=== PATIENT | female | born 1955 | race Caucasian/White ===

== ENCOUNTER 2020-10-14 07:59 | Outpatient (REF) | payer MEDICARE, OTHER, SELFPAY ==
--- NOTE | ~2020-10-14 | MM_ITS ---
EXAMINATION: MM SCREENING DIGITAL BREAST TOMOSYNTHESIS, BILATERAL CLINICAL INFORMATION: Screening. Asymptomatic. The lifetime risk of breast cancer based on the Tyrer-Cuzick Model is 4%. COMPARISON: Outside mammography: 05/28/2018, 04/09/2016 ([facility]). TECHNIQUE: Digital breast tomosynthesis is performed in both the craniocaudal and mediolateral oblique views along with computer-aided detection (CAD). Synthesized 2D images are generated from the tomosynthesis. FINDINGS: There are scattered areas of fibroglandular density (ACR BI-RADS breast composition Category b). Parenchymal pattern is similar to previous outside exams. There is no developing density or interval mass or architectural abnormality. There are no significant masses, abnormal calcifications, or other abnormalities. The axilla and skin contours are unremarkable. MM/MM tomosynthesis screening BI IMPRESSION: No significant changes from prior outside exams. ASSESSMENT: BI-RADS 1: Negative RECOMMENDATION: Routine annual mammography screening. This patient's information was entered into a reminder system with a target due date for their next mammogram.
--- NOTE | ~2020-10-14 | MM_ITS ---
EXAMINATION: BONE DENSITOMETRY CLINICAL INDICATION: Osteoporosis. COMPARISON: This is the patient's baseline examination. TECHNIQUE: Using a [employer] DXA System (software version: 13.1) manufactured by [employer], dual-energy x-ray absorptiometry was performed of the lumbar spine and left hip. The images are of good technical quality. Summary results are attached. FINDINGS: AP SPINE L1-L4: BMD 0.901 g/cm2, Z-score -0.6, T-score -2.3, osteopenia. LEFT FEMUR, NECK: BMD 0.716 g/cm2, Z-score -0.8, T-score -2.3, osteopenia. LEFT FEMUR, TOTAL: BMD 0.808 g/cm2, Z-score -0.3, T-score -1.6, osteopenia. IDENTIFIED RISK FACTORS: Menopause, low calcium intake. HISTORY OF FRACTURE: None listed. MEDICATIONS: None listed. MM/XR DEXA axial skeleton IMPRESSION: 1. DIAGNOSIS: Osteopenia based on the lowest T-score value of -2.3 in the lumbar spine and femur neck applying World Health Organization criteria. 2. 10-YEAR FRACTURE RISK PREDICTION, FRAX: Major osteoporotic fracture (clinical spine, forearm, hip or shoulder) 12.5%. Hip fracture 2.4%. 3. Treatment Recommendations: NOF guidelines recommend consideration for treatment in postmenopausal women and men age 50 and older presenting with the following: -A hip or vertebral (clinical or morphometric) fracture. -T-score less than or equal to -2.5 at the femoral neck or spine after appropriate evaluation to exclude secondary causes. -Low bone mass at the hip or spine and a 10-year fracture probability by FRAX of greater than or equal to 3% for hip fracture or greater than or equal to 20% for major osteoporotic fracture based on the [place] adapted WHO algorithm. 4. Other Recommendations: All treatment decisions require clinical judgment and consideration of individual patient factors, including patient preferences, comorbidities, previous drug use, risk factors not captured in the FRAX model (e.g. frailty, falls, vitamin D deficiency, increased bone turnover, interval significant decline in bone density) and possible under or overestimation of fracture risk by FRAX. Additional medical evaluation for secondary cause of low bone mineral density may be appropriate. FUTURE SCAN RECOMMENDATION: People with diagnosed cases of osteoporosis or at high risk for fracture should have regular bone mineral density tests. For patients eligible for Medicare, routine testing is allowed once every 2 years. The testing frequency can be increased to one year for patients who have rapidly progressing disease, those who are receiving or discontinuing medical therapy to restore bone mass, or have additional risk factors.
== END 2020-10-14 08:00 | disposition home or self-care (01) ==
LOC: HO.MAMMO 07:59
PROVIDERS: PCP Internal Medicine; Visit Provider Internal Medicine
DX: Z12.31 Encounter for screening mammogram for malignant neoplasm of breast (principal); M81.0 Age-related osteoporosis without current pathological fracture; Z78.0 Asymptomatic menopausal state
CPT/HCPCS: 77063; 77067; 77080

== ENCOUNTER 2022-07-24 11:22 | Outpatient (REF) | payer MEDICARE, OTHER, SELFPAY ==
--- NOTE | ~2022-07-24 | MM_ITS ---
EXAMINATION: MM SCREENING DIGITAL BREAST TOMOSYNTHESIS, BILATERAL CLINICAL INFORMATION: Screening. Asymptomatic. The lifetime risk of breast cancer based on the Tyrer-Cuzick Model is 4%. COMPARISON: Mammography: 10/14/2020; outside mammography 05/28/2018, 04/09/2016 ([facility]). TECHNIQUE: Digital breast tomosynthesis is performed in both the craniocaudal and mediolateral oblique views along with computer-aided detection (CAD). Synthesized 2D images are generated from the tomosynthesis. FINDINGS: There are scattered areas of fibroglandular density (ACR BI-RADS breast composition Category b). There are no significant masses, abnormal calcifications, or other abnormalities. No architectural abnormality or developing density or significant change from prior studies. The axilla and skin contours are unremarkable. MM/MM tomosynthesis screening BI IMPRESSION: No mammographic evidence of malignancy. ASSESSMENT: BI-RADS 1: Negative RECOMMENDATION: Routine annual mammography screening. This patient's information was entered into a reminder system with a target due date for their next mammogram.
== END 2022-07-24 11:23 | disposition home or self-care (01) ==
LOC: HO.MAMMO 11:22
PROVIDERS: Visit Provider Internal Medicine
DX: Z12.31 Encounter for screening mammogram for malignant neoplasm of breast (principal)
CPT/HCPCS: 77063; 77067

== ENCOUNTER 2022-08-14 10:05 | Outpatient (REF) | payer MEDICARE, OTHER, SELFPAY ==
[2022-08-14 10:28] LABS: MANUAL DIFF FLAG NO
[2022-08-14 10:39] LABS: Basophils Percent Auto 0.5 % (0-2); Eosinophils Percent Auto 0.5 % (0-4); Hematocrit 44.5 % (37.0-47.0); Hemoglobin 15.3 g/dl (12.0-16.0); Imm Gran Abs Auto 0.01 X10*3/uL (0.00-0.03); Imm Gran Pct Auto 0.2 % (0.0-0.4); Lymphocytes Absolute Auto 2.7 X10*3/uL (1.2-4.9); Lymphocytes Percent Auto 46.3 % (20-40); Mean Corpuscular HGB Conc 34.4 g/dl (31.0-35.0); Mean Corpuscular Hemoglobin 32.3 pg (27.0-33.0); Mean Corpuscular Volume 94.1 fL (80.0-98.0); Mean Platelet Volume 9.3 fL (9.4-12.3); Monocytes Absolute Auto 0.4 X10*3/uL (0.1-1.2); Monocytes Percent Auto 7.5 % (2-11); Neutrophils Absolute Auto 2.6 x10*3/uL (2.0-8.3); Platelet Count 206 X10*3/uL (160-400); Red Blood Count 4.73 X10*6/uL (4.20-5.50); White Blood Count 5.9 X10*3/uL (4.8-10.8)
[2022-08-14 11:28] LABS: Alanine Aminotransferase 28 U/L (0-31); Albumin Level 4.6 g/dL (3.5-5.0); Alkaline Phosphatase 96 U/L (39-117); Anion Gap 14 (12-20); Aspartate Amino Transferase 24 U/L (5-31); Bilirubin Total 0.8 mg/dL (0.0-1.0); Blood Urea Nitrogen 16 mg/dL (9-16); Calcium 9.5 mg/dL (8.4-10.2); Carbon Dioxide 23 mmol/L (22-29); Chloride 107 mmol/L (96-108); Cholesterol 220 mg/dL; Estimated Glomerular Filt Rate > 60; Glucose Random 96 mg/dL (60-115); HDL Cholesterol 64 mg/dL; LDL Cholesterol Calculated 142 mg/dl; Potassium 4.3 mmol/L (3.3-5.1); Sodium 140 mmol/L (135-145); Total Protein 7.4 g/dL (6.5-8.0); Triglycerides 73 mg/dL
[2022-08-14 12:00] LABS: Folate 10.6 ng/mL (> or = 4.0); Free T4 (Free Thyroxine) 1.46 ng/dL (0.71-1.85); Thyroid Stimulating Hormone 0.01 uIU/mL (0.32-4.0); Vitamin B12 424 pg/mL (200-900)
== END 2022-08-14 10:06 | disposition home or self-care (01) ==
LOC: HO.LAB 10:05
PROVIDERS: PCP Internal Medicine; Visit Provider Internal Medicine
DX: E03.9 Hypothyroidism, unspecified (principal); E78.00 Pure hypercholesterolemia, unspecified; M81.0 Age-related osteoporosis without current pathological fracture
CPT/HCPCS: 36415; 80053; 80061; 82306; 82607; 82746; 84439; 84443; 85025

== ENCOUNTER 2022-09-14 08:37 | Outpatient (REF) | payer MEDICARE, OTHER, SELFPAY ==
[2022-09-14 12:18] LABS: Free T4 (Free Thyroxine) 1.06 ng/dL (0.71-1.85); Thyroid Stimulating Hormone 0.09 uIU/mL (0.32-4.0)
== END 2022-09-14 08:38 | disposition home or self-care (01) ==
LOC: HO.WFDLDS 08:37
PROVIDERS: Visit Provider Internal Medicine
DX: E03.9 Hypothyroidism, unspecified (principal)
CPT/HCPCS: 36415; 84439; 84443

== ENCOUNTER 2022-10-30 09:28 | Outpatient (REF) | payer MEDICARE, OTHER, SELFPAY ==
[2022-10-30 11:50] LABS: Free T4 (Free Thyroxine) 1.02 ng/dL (0.71-1.85); Thyroid Stimulating Hormone 0.93 uIU/mL (0.32-4.0)
== END 2022-10-30 09:29 | disposition home or self-care (01) ==
LOC: HO.LAB 09:28
PROVIDERS: PCP Internal Medicine; Visit Provider Internal Medicine
DX: E03.9 Hypothyroidism, unspecified (principal)
CPT/HCPCS: 36415; 84439; 84443

== ENCOUNTER → 2023-07-03 10:30 | Outpatient (AMB) | payer MEDICARE, OTHER, SELFPAY ==
[2023-07-03 10:32] VITALS: BP 118/68; PULSE 62; O2SAT 99; BMI 25.8
--- NOTE | 2023-07-03 10:32 | AM.OFFWIN_ITS ---
Intake Vital Signs 07/03/23 10:32 Height 5 ft 1 in Weight 136 lb 8 oz BMI 25.8 BP 118/68 Blood Pressure Location Lt brachial Position Sitting Pulse 62 Pulse Source Pulse Oximeter Pulse Oximetry (%) 99 Oxygen Delivery Method Room Air Intake Visit Reasons: tick bite Intake Note: Patient is here with a tick bite on right side of chest for 2 days. Patient Tobacco Use Status: Never used Tobacco Allergies latex Allergy (Mild, Verified 07/03/23 10:51) breathing issues pineapple Allergy (Unknown, Verified 07/03/23 10:51) Unknown sulfacetamide [From Sulfacet-R] Allergy (Unknown, Verified 07/03/23 10:51) Unknown sulfur [From Sulfacet-R] Allergy (Unknown, Verified 07/03/23 10:51) Unknown high dose flu shot Adverse Reaction (Severe, Uncoded 07/03/23 10:51) swelling Medication List - Last Reconciled 07/03/23 by Reta Payne, QUOTATION CHECKER-BC artificial tears([id number]) drps ophthalmic (eye) cyclosporine 0.09% (Cequa) 1 drp ophthalmic (eye) Q12H doxycycline hyclate 200 mg (2 x 100 mg) PO DAILY levothyroxine 88 mcg PO DAILY vitamin A-vitamin C-vit E-min 1 tab PO DAILY Do you need a note to return to daycare/school/sports/work: No HPI HPI Comments History of Present Illness Details here today w tick bite occurred yesterday whilel gardening right chest did try to remove she is sure it was not there for more than 24 hours UTD on tdap PFSH Medical History (System 04/17/23 @ 14:41 by Stefani Roberts) Lactose intolerance Irritable bowel syndrome Hypertension Hypothyroid Surgical History (System 04/17/23 @ 14:41 by Stefani Roberts) History of cataract surgery No pertinent past surgical history Family History (System 04/17/23 @ 14:41 by Stefani Roberts) Mother No problems noted. Father No problems noted. Sister No problems noted. Sister No problems noted. Sister No problems noted. Sister No problems noted. Son No problems noted. Son No problems noted. Daughter No problems noted. Social History (System 04/17/23 @ 14:41 by Stefani Roberts) Housing: House Alcohol intake: current Alcohol intake frequency: 0-2 drinks per day Patient Tobacco Use Status: Never used Tobacco e-Cigarette/Vaping Use: Never Used Second Hand Smoke Exposure: No Current occupational status: retired Cognitive needs: No Hearing needs: No Vision needs: No Review of Systems Const All systems reviewed & are unremarkable except as noted in HPI and below Physical Exam Vital Signs: Last Vital Signs Pulse 62 07/03/23 10:32 BP 118/68 07/03/23 10:32 Pulse Ox 99 07/03/23 10:32 Oxygen Delivery Method Room Air 07/03/23 10:32 BMI result Body Mass Index 25.8 Const Other: Awake alert oriented no acute distress Speaking in full sentences Right chest wall is an area consistent with a partially retained tick. No extending erythema, edema or drainage. Assessment & Plan Assessment & Plan (1) Tick bite of chest wall: Code(s): S20.369A - Insect bite (nonvenomous) of unspecified front wall of thorax, initial encounter; W57.XXXA - Bitten or stung by nonvenomous insect and other nonvenomous arthropods, initial encounter Qualifiers: Encounter type: initial encounter Laterality: right Qualified Code(s): S20.361A - Insect bite (nonvenomous) of right front wall of thorax, initial encounter; W57.XXXA - Bitten or stung by nonvenomous insect and other nonvenomous arthropods, initial encounter Plan: Tick present for less than 24 hours. Patient is up-to-date on tetanus shot. Discussed the low risk of any Lyme disease. She would like to be treated with doxycycline 200 mg as someone in her family has Lyme disease and she is afraid of alyssa this illness. I have sent the son and advised on how to take as well as provided education regarding the retained tick. This area is quite small. Okay to apply warm moist compresses. The body will expel the tick contents. Plan This note is constructed using voice recognition software. While every effort has been made to ensure accuracy in wood heel flap inserter, still errors may have been included Sometimes, these errors may affect the content or meaning of the given sentence . Medications: New doxycycline hyclate 200 mg (2 x 100 mg) PO DAILY 2 tabs 0RF Coding Level of Care Code Est Pt Level 3 (19642) Diagnoses Tick bite of right side of chest wall, initial encounter S20.361A; W57.XXXA Encounter type: initial encounter Laterality: right
== END ==
PROVIDERS: PCP Internal Medicine; Visit Provider Nurse Practitioner Family
DX: S20.361A Insect bite (nonvenomous) of right front wall of thorax, initial encounter (principal); W57.XXXA Bitten or stung by nonvenomous insect and other nonvenomous arthropods, initial encounter
CPT/HCPCS: 99213

== ENCOUNTER 2023-08-21 09:10 | Outpatient (AMB) | payer MEDICARE, OTHER, SELFPAY ==
[2023-08-21 09:12] VITALS: BP 140/76; PULSE 70; O2SAT 98; BMI 25.3
--- NOTE | 2023-08-21 09:12 | MHC.PC.OV ---
Vital Signs 08/21/23 09:12 Height 5 ft 1 in Weight 134 lb BMI 25.3 BP 140/76 H Blood Pressure Location Lt brachial Position Sitting Pulse 70 Pulse Source Pulse Oximeter Pulse Oximetry (%) 98 Oxygen Delivery Method Room Air Intake Visit Reasons: Annual exam Allergies latex Allergy (Mild, Verified 08/21/23 09:12) breathing issues pineapple Allergy (Unknown, Verified 08/21/23 09:12) Unknown sulfacetamide [From Sulfacet-R] Allergy (Unknown, Verified 08/21/23 09:12) Unknown sulfur [From Sulfacet-R] Allergy (Unknown, Verified 08/21/23 09:12) Unknown high dose flu shot Adverse Reaction (Severe, Uncoded 08/21/23 09:12) swelling Medication List - Last Reconciled 08/21/23 by Jose Angel Grigsby MD artificial tears([id number]) drps ophthalmic (eye) cyclosporine 0.09% (Cequa) 1 drp ophthalmic (eye) Q12H levothyroxine 88 mcg PO DAILY vitamin A-vitamin C-vit E-min 1 tab PO DAILY [zocular spray ] Tobacco use date assessed: 08/21/23 Fall risk assessment: No Falls in past year Last assessed Fall Risk: 08/21/23 Dental Screening Dental Screen Date: 08/21/23 Did you have a dental visit in the last 12 months?: No Did you have a dental problem in the last 6 months where you did not have access to dental care?: No Was dental information given to patient?: Patient has dentist HPI Annual exam HPI Details 68-year-old female with a history of hypothyroidism osteoporosis and insomnia last seen in August 2022. Patient's colonoscopy was done 8 years ago. Mammogram is due and bone density is due. Review of the notes was seen by the Urgent Center in June for a tick bite treated with prophylaxis of doxycycline. Follows up with Dermatology. ER visit in December 2022 for suture on the right crease between the thumb and the pointer finger of the right hand. congested, PFSH Medical History (Updated 08/21/23 @ 09:41 by Jose Angel Grigsby MD) Lactose intolerance Irritable bowel syndrome Hypertension Hypothyroid Surgical History (System 04/17/23 @ 14:41 by Stefani Roberts) History of cataract surgery No pertinent past surgical history Family History (System 04/17/23 @ 14:41 by Stefani Roberts) Mother No problems noted. Father No problems noted. Sister No problems noted. Sister No problems noted. Sister No problems noted. Sister No problems noted. Son No problems noted. Son No problems noted. Daughter No problems noted. Social History (Updated 08/21/23 @ 09:30 by Jose Angel Grigsby MD) Housing: House Alcohol intake: current Alcohol intake frequency: 0-2 drinks per day Comment: stopped 08/2023 Patient Tobacco Use Status: Never used Tobacco Years Smoked: makes pot gummies e-Cigarette/Vaping Use: Never Used Second Hand Smoke Exposure: No Current occupational status: retired Cognitive needs: No Hearing needs: No Vision needs: No Questionnaire PHQ-9 Over the last 2 weeks, how often have you been bothered by any of the following problems? 1. Little interest or pleasure in doing things: not at all 2. Feeling down, depressed, or hopeless: not at all 3. Trouble falling or staying asleep, or sleeping too much: not at all 4. Feeling tired or having little energy: not at all 5. Poor appetite or overeating: not at all 6. Feeling bad about yourself - or that you are a failure or have let yourself or your family down: not at all 7. Trouble concentrating on things, such as reading the newspaper or watching television: not at all 8. Moving or speaking so slowly that other people could have noticed. Or the opposite - being so fidgety or restless that you have been moving around a lot more than usual: not at all 9. Thoughts that you would be better off or of hurting yourself in some way: not at all Total score: 0 Depression Screening Interpretation: Negative Depression Screening Done: Yes Source: Developed by Drs. Harjeet Zarate, Jennifer Jarvis, Rahat Stallings and colleagues, with an educational ghassan from [employer]. Thrive Questionnaire Date Thrive assessed: 08/21/23 I am a: Patient What is your living situation today?: I have a steady place to live Within the past 12 months, did the food you bought not last and you didn't have the money to get more?: Never true Within the past 12 months, did you worry whether your food would run out before you got money to buy more?: Never true Do you have trouble paying for medicines?: No Do you have trouble getting transportation to medical appointments?: No Do you have trouble paying your heating and electricity bill?: No Do you have trouble taking care of your child, family member or friend?: No Do you have trouble with day-to-day activities such as bathing, preparing meals, shopping, managing finances, etc.?: No Are you currently unemployed and looking for a job?: No Are you interested in more education?: No Currently or been in a relationship where the following occur: no concerns reported THRIVE Score: 0 AUDIT C Alcohol Use Questionnaire (AUDIT-C) 1. How often do you have a drink containing alcohol?: Never 3. How often do you have six or more drinks on one occasion?: Never Total Score: 0 ALESSANDRA-7 AMB Questionnaire ALESSANDRA-7 Date ALESSANDRA - 7 assessed: 08/21/23 Feeling nervous, anxious, or on edge: 0 = Not at all Not being able to stop or control worryin = Not at all Worrying too much about different things: 0 = Not at all Trouble relaxin = Not at all Being so restless that it is hard to sit still: 0 = Not at all Becoming easily annoyed or irritable: 0 = Not at all Feeling afraid as if something awful might happen: 0 = Not at all Total ALESSANDRA-7 score (0-4 normal; 5-9 mild; 10-14 moderate; 15-21 severe): 0 Source: Developed by Drs. Harjeet Zarate, Jennifer Jarvis, Rahat Stallings and colleagues, with an educational ghassan from [employer]. Review of Systems Const Denies poor appetite and Denies weakness Eyes Denies no additional complaints ENT Reports Normal hearing present, Denies dizziness, Denies nasal congestion, Denies tinnitus and Denies sore throat Card Denies chest pain, Denies syncope, Denies rapid heart rate and Denies dyspnea Resp Denies cough and Denies dyspnea GI Denies change in stool character, Reports constipation, Denies diarrhea, Denies nausea and Denies vomiting Denies urinary frequency, Denies difficulty voiding and Denies dysuria Neuro Reports Normal hearing present, Denies confusion, Denies dizziness, Denies syncope and Denies weakness Psych Denies confusion Physical exam (Primary Care) Vital Signs: Last Vital Signs Pulse 70 08/21/23 09:12 BP 140/76 H 08/21/23 09:12 Pulse Ox 98 08/21/23 09:12 Oxygen Delivery Method Room Air 08/21/23 09:12 BMI result Body Mass Index 25.3 Tobacco/Smoking Status: Tobacco use Status Tobacco use date assessed 08/21/23 08/21/23 09:20 Patient Tobacco Use Status Never used Tobacco 08/21/23 09:20 e-Cigarette/Vaping Use Never Used 08/21/23 09:20 PHQ-9: PHQ-9 Score PHQ-9: Total score 0 08/21/23 09:20 Depression Screening Interpretation: Negative Thrive Assessment: Date of Thrive Assessment Date Thrive assessed 08/21/23 08/21/23 09:20 Currently or been in a relationship where the following occur: no concerns reported Const General: No confusion Orientation/consciousness: No confusion HENMT Head: Yes normocephalic Ears: external ears normal and TM's normal bilaterally Face and sinus: Yes normal facial exam Mouth: moist mucous membranes Throat: Yes tonsils normal Eyes Conjunctivae: conjunctivae normal Pupils: Equal, round and reactive pupils present and Pupil accommodation reflex normal Direct Ophthalmoscopy: normal light reflex Neck Neck: No lymphadenopathy Thyroid: Thyroid normal Chest Chest palpation & inspection: normal inspection of the chest Resp Effort & Inspection: normal respiratory effort and no audible wheezes Auscultation: clear to auscultation bilaterally, no crackles, no wheezes and lung sounds not diminished Cardio Rate: regular rate Rhythm: regular rhythm Peripheral pulses: radial pulses present and dorsalis pedis present GI Other: guaiac negative Palpation (GI): no masses Auscultation: normal bowel sounds and normoactive bowel sounds Skin General skin exam: no rashes or lesions noted Rashes: no rashes Neuro General: No confusion Cranial nerves: Yes Equal, round and reactive pupils present and Yes Normal hearing present Cognition (Neuro): normal cognition Gait exam (Neuro): Normal gait present Motor exam (neuro): 5/5 motor strength present throughout Deep tendon reflexes (DTR's): Right brachioradialis reflex intensity grade: 2+, Left brachioradialis reflex intensity grade: 2+, Right patellar reflex intensity grade: 2+ and Left patellar reflex intensity grade: 2+ Extrem General: No edema Assessment and Plan Assessment & Plan (1) Annual physical exam: Code(s): Z00.00 - Encounter for general adult medical examination without abnormal findings (2) Breast cancer screening by mammogram: Code(s): Z12.31 - Encounter for screening mammogram for malignant neoplasm of breast Plan: Patient is reminded about the mammogram (3) Osteoporosis: Comment: October 2020 Code(s): M81.0 - Age-related osteoporosis without current pathological fracture Plan: Patient is due for bone density (4) Hypertension: Code(s): I10 - Essential (primary) hypertension (5) Hypothyroid: Code(s): E03.9 - Hypothyroidism, unspecified Qualifiers: Hypothyroidism type: acquired Qualified Code(s): E03.9 - Hypothyroidism, unspecified Plan: Continue with thyroid medication and blood work requested. (6) Hypercholesterolemia: Code(s): E78.00 - Pure hypercholesterolemia, unspecified Plan: Avoid fried foods, chicken skin, eggs, butter margarine, pastries and meat. Be it pork or beef they have a lot of cholesterol LDL goal of less than 130 and triglyceride of less than 150. Advised to get blood work done (7) Sinusitis: Code(s): J32.9 - Chronic sinusitis, unspecified Plan: antibiotic sent with asteprosamples Orders: Orders Complete Blood Count Auto Diff Today I10 - Essential (primary) hypertension Comprehensive Met. Panel Today I10 - Essential (primary) hypertension Free T4 (Free Thyroxine) Today I10 - Essential (primary) hypertension Vitamin B12 and Folate Today I10 - Essential (primary) hypertension Thyroid Stimulating Hormone Today I10 - Essential (primary) hypertension Lipid Panel Today E78.00 - Pure hypercholesterolemia, unspecified, I10 - Essential (primary) hypertension Vitamin D 25-OH Total Today I10 - Essential (primary) hypertension XR DEXA axial skeleton Today M81.0 - Age-related osteoporosis without current pathological fracture Medications: New levothyroxine 88 mcg PO DAILY 90 tabs 2RF E03.9 - Hypothyroidism, unspecified azelastine (Astepro Allergy) administer into each nostril 2 sprays intranasal DAILY 30 mL 0RF J32.9 - Chronic sinusitis, unspecified amoxicillin-pot clavulanate 875-125 mg 1 tab PO BID 20 tabs 0RF J32.9 - Chronic sinusitis, unspecified Discontinued levothyroxine Discontinued Reason: Doctor's Order 88 mcg PO DAILY 30 caps 3RF E03.9 - Hypothyroidism, unspecified Coding Level of Care Code Est Pt Prev Care >65y(71043) Diagnoses Annual physical exam Z00.00 Breast cancer screening by mammogram Z12.31 Osteoporosis M81.0 Hypertension I10 Acquired hypothyroidism E03.9 Hypothyroidism type: acquired Hypercholesterolemia E78.00 Sinusitis J32.9
== END 2023-08-21 09:57 | disposition home or self-care (01) ==
PROVIDERS: Visit Provider Internal Medicine
DX: Z00.00 Encounter for general adult medical examination without abnormal findings (principal); Z12.31 Encounter for screening mammogram for malignant neoplasm of breast; M81.0 Age-related osteoporosis without current pathological fracture; I10 Essential (primary) hypertension; E03.9 Hypothyroidism, unspecified; E78.00 Pure hypercholesterolemia, unspecified; J32.9 Chronic sinusitis, unspecified
CPT/HCPCS: 99397

== ENCOUNTER → 2023-08-21 09:30 | Outpatient (BNV) | payer MEDICARE, OTHER, SELFPAY | PROVIDERS: PCP Internal Medicine; Visit Provider Radiology Diagnostic Radiology | DX: Z12.31 Encounter for screening mammogram for malignant neoplasm of breast (principal) | CPT/HCPCS: 77063; 77067 ==

== ENCOUNTER 2023-08-21 10:00 | Outpatient (REF) | payer MEDICARE, OTHER, SELFPAY ==
--- NOTE | ~2023-08-21 | MM_ITS ---
EXAMINATION: BONE DENSITOMETRY CLINICAL INDICATION: Age-related osteoporosis without current pathological fracture. COMPARISON: Baseline BD dated 10/14/2020. TECHNIQUE: Using a [employer] DXA System (software version: 13.1) manufactured by [employer], dual-energy x-ray absorptiometry was performed of the lumbar spine and left hip. The images are of good technical quality. Summary results are attached. FINDINGS: LEFT FEMUR, NECK: Current: BMD 0.711 g/cm2, Z-score -0.6, T-score -2.4, osteopenia. Baseline: BMD 0.716 g/cm2. LEFT FEMUR, TOTAL: Current: BMD 0.828 g/cm2, Z-score 0.0, T-score -1.4, osteopenia, 2.5% increase from baseline (<5% change is not significant). Baseline: BMD 0.808 g/cm2. AP SPINE L1-L4: Current: BMD 0.872 g/cm2, Z-score -0.8, T-score -2.6, osteoporosis, 3.2% decrease from baseline (<5% change is not significant). Baseline: BMD 0.901 g/cm2. IDENTIFIED RISK FACTORS: Menopause, alcohol use. HISTORY OF FRACTURE: None listed. MEDICATIONS: None listed. MM/XR DEXA axial skeleton IMPRESSION: 1. DIAGNOSIS: Osteoporosis based on the lowest T-score value of -2.6 in the lumbar spine applying World Health Organization criteria. 2. 10-YEAR FRACTURE RISK PREDICTION, FRAX: According to the guidelines, FRAX calculation should only be performed on patients in the osteopenia bone density category. Therefore, FRAX was not performed on this patient. 3. Treatment Recommendations: NOF guidelines recommend consideration for treatment in postmenopausal women and men age 50 and older presenting with the following: -A hip or vertebral (clinical or morphometric) fracture. -T-score less than or equal to -2.5 at the femoral neck or spine after appropriate evaluation to exclude secondary causes. -Low bone mass at the hip or spine and a 10-year fracture probability by FRAX of greater than or equal to 3% for hip fracture or greater than or equal to 20% for major osteoporotic fracture based on the [place] adapted WHO algorithm. 4. Other Recommendations: All treatment decisions require clinical judgment and consideration of individual patient factors, including patient preferences, comorbidities, previous drug use, risk factors not captured in the FRAX model (e.g. frailty, falls, vitamin D deficiency, increased bone turnover, interval significant decline in bone density) and possible under or overestimation of fracture risk by FRAX. Additional medical evaluation for secondary cause of low bone mineral density may be appropriate. FUTURE SCAN RECOMMENDATION: People with diagnosed cases of osteoporosis or at high risk for fracture should have regular bone mineral density tests. For patients eligible for Medicare, routine testing is allowed once every 2 years. The testing frequency can be increased to one year for patients who have rapidly progressing disease, those who are receiving or discontinuing medical therapy to restore bone mass, or have additional risk factors.
[2023-08-21 10:50] LABS: MANUAL DIFF FLAG NO
[2023-08-21 11:03] LABS: Basophils Percent Auto 0.4 % (0-2); Eosinophils Percent Auto 0.4 % (0-4); Hematocrit 45.9 % (37.0-47.0); Hemoglobin 15.9 g/dl (12.0-16.0); Imm Gran Abs Auto 0.02 X10*3/uL (0.00-0.03); Imm Gran Pct Auto 0.3 % (0.0-0.4); Lymphocytes Absolute Auto 2.6 X10*3/uL (1.2-4.9); Lymphocytes Percent Auto 38.1 % (20-40); Mean Corpuscular HGB Conc 34.6 g/dl (31.0-35.0); Mean Corpuscular Hemoglobin 33.1 pg (27.0-33.0); Mean Corpuscular Volume 95.6 fL (80.0-98.0); Monocytes Absolute Auto 0.5 X10*3/uL (0.1-1.2); Monocytes Percent Auto 7.7 % (2-11); Neutrophils Absolute Auto 3.6 x10*3/uL (2.0-8.3); Neutrophils Percent Auto 53.1 % (45-73); Platelet Count 189 X10*3/uL (160-400); Red Cell Distribution Width 11.9 % (11.0-16.0); White Blood Count 6.8 X10*3/uL (4.8-10.8)
[2023-08-21 12:02] LABS: Alanine Aminotransferase 42 U/L (0-31); Albumin Level 4.8 g/dL (3.5-5.0); Alkaline Phosphatase 85 U/L (39-117); Anion Gap 12 (12-20); Aspartate Amino Transferase 31 U/L (5-31); Bilirubin Total 0.6 mg/dL (0.0-1.0); Blood Urea Nitrogen 12 mg/dL (9-16); Calcium 9.7 mg/dL (8.4-10.2); Carbon Dioxide 25 mmol/L (22-29); Chloride 105 mmol/L (96-108); Cholesterol 216 mg/dL (<200); Estimated Glomerular Filt Rate > 60; Glucose Random 103 mg/dL (60-115); HDL Cholesterol 65 mg/dL (>40); LDL Cholesterol Calculated 133 mg/dL (<100); Potassium 5.1 mmol/L (3.3-5.1); Sodium 137 mmol/L (135-145); Total Protein 8.1 g/dL (6.5-8.0); Triglycerides 93 mg/dL (<150)
[2023-08-21 12:09] LABS: Free T4 (Free Thyroxine) 1.07 ng/dL (0.71-1.85); Thyroid Stimulating Hormone 0.78 uIU/mL (0.32-4.0); Vitamin D 25-OH Total 28.5 ng/mL (>30)
[2023-08-21 12:18] LABS: Folate 8.8 ng/mL (> or = 4.0); Vitamin B12 525 pg/mL (200-900)
== END 2023-08-21 10:01 | disposition home or self-care (01) ==
LOC: HO.MAMMO 10:00
PROVIDERS: PCP Internal Medicine; Visit Provider Internal Medicine
DX: Z12.31 Encounter for screening mammogram for malignant neoplasm of breast (principal); Z13.820 Encounter for screening for osteoporosis; M81.0 Age-related osteoporosis without current pathological fracture; Z78.0 Asymptomatic menopausal state; E78.00 Pure hypercholesterolemia, unspecified; I10 Essential (primary) hypertension
CPT/HCPCS: 36415; 77063; 77067; 77080; 80053; 80061; 82306; 82607; 82746; 84439; 84443; 85025

== ENCOUNTER 2023-08-29 08:09 | Outpatient (REF) | payer MEDICARE, OTHER, SELFPAY ==
--- NOTE | ~2023-08-29 | US_ITS ---
EXAMINATION: US ABDOMEN COMPLETE CLINICAL INFORMATION: Other specified abnormal findings of blood chemistry. COMPARISON: None available. TECHNIQUE: Real-time imaging of the abdominal viscera. Limited visualization due to bowel gas. FINDINGS: PANCREAS: Limited visualization of pancreatic tail and head. Imaged portion of pancreatic body is unremarkable. ABDOMINAL AORTA: Limited visualization. INFERIOR VENA CAVA: Visualized portions are normal. LIVER: Increased hepatic parenchymal heterogeneity and echogenicity could be associated with hepatocellular disease/hepatic steatosis and substantially limits visualization. Correlation with liver function tests and clinical exam recommended to determine further management. 1.3 cm right hepatic cyst. GALLBLADDER: No gallstones. No gallbladder wall thickening. COMMON BILE DUCT: Normal in caliber measuring 0.3 cm in diameter. RIGHT KIDNEY: No hydronephrosis. 9 mm upper pole and 7 mm mid pole calculi. Limited visualization. 1.1 cm mid pole cysts with benign features. There is no indication for follow up imaging. The kidney measures 10.7 cm in maximum dimension. LEFT KIDNEY: Left mid pole 5 mm calculus. No hydronephrosis. Limited visualization. The kidney measures 10.9 cm in maximum dimension. SPLEEN: Normal. The spleen measures 7 cm in maximum dimension. FREE FLUID: None. US/US abdomen complete IMPRESSION: 1. Increased hepatic parenchymal heterogeneity and echogenicity could be associated with hepatocellular disease/hepatic steatosis and substantially limits visualization. Correlation with liver function tests and clinical exam recommended to determine further management. 2. Bilateral renal calculi. No hydronephrosis. 3. Right hepatic 1.3 cm cyst.
== END 2023-08-29 08:10 | disposition home or self-care (01) ==
LOC: HO.US 08:09
PROVIDERS: Visit Provider Internal Medicine
DX: R79.89 Other specified abnormal findings of blood chemistry (principal)
CPT/HCPCS: 76700

== ENCOUNTER 2023-09-03 13:27 | Outpatient (REF) | payer MEDICARE, OTHER, SELFPAY ==
[2023-09-03 15:34] LABS: Alanine Aminotransferase 22 U/L (0-31); Albumin Level 4.6 g/dL (3.5-5.0); Alkaline Phosphatase 77 U/L (39-117); Anion Gap 15 (12-20); Aspartate Amino Transferase 21 U/L (5-31); Bilirubin Total 0.4 mg/dL (0.0-1.0); Blood Urea Nitrogen 9 mg/dL (9-16); Calcium 10.2 mg/dL (8.4-10.2); Carbon Dioxide 26 mmol/L (22-29); Chloride 105 mmol/L (96-108); Estimated Glomerular Filt Rate > 60; Glucose Random 101 mg/dL (60-115); Potassium 4.5 mmol/L (3.3-5.1); Sodium 141 mmol/L (135-145); Total Protein 7.7 g/dL (6.5-8.0)
[2023-09-04 04:29] LABS: HBS Num1 0.33 mIU/mL (0-7.99); HBc Num1 0.09 S/CO (0.00-0.79); HBsAGNum1 0.22 S/CO (0.00-0.99); Hepatitis B Core Antibody Nonreactive (Nonreactive); Hepatitis B Surface Antigen Negative (Negative); ~HepC Num1 0.09 S/CO (0.00-0.79); ~Hepatitis B Surface Antibody NONREACTIVE (Nonreactive); ~Hepatitis C Antibody Nonreactive (Nonreactive)
== END 2023-09-03 13:28 | disposition home or self-care (01) ==
LOC: HO.LAB 13:27
PROVIDERS: PCP Internal Medicine; Visit Provider Internal Medicine
DX: R79.89 Other specified abnormal findings of blood chemistry (principal)
CPT/HCPCS: 36415; 80053; 86704; 86706; 86803; 87340

== ENCOUNTER 2024-01-03 09:59 | Outpatient (AMB) | payer MEDICARE, OTHER, SELFPAY ==
--- NOTE | 2024-01-03 10:01 | A.OFFPC_ITS ---
Vital Signs 01/03/24 10:03 Height 5 ft 1 in Weight 130 lb BMI 24.6 BP 120/62 Blood Pressure Location Lt brachial Position Sitting Pulse 77 Pulse Source Pulse Oximeter Pulse Oximetry (%) 98 Oxygen Delivery Method Room Air Intake Visit Reasons: 3mth f/u Intake Note: Patient is here to follow up on Hypercholesterolemia, HTN, Hypothyroid . 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 Accompanied by: Self / Same As Patient Allergies latex Allergy (Mild, Verified 01/03/24 10:02) breathing issues pineapple Allergy (Unknown, Verified 01/03/24 10:02) Unknown sulfacetamide [From Sulfacet-R] Allergy (Unknown, Verified 01/03/24 10:02) Unknown sulfur [From Sulfacet-R] Allergy (Unknown, Verified 01/03/24 10:02) Unknown high dose flu shot Adverse Reaction (Severe, Uncoded 01/03/24 10:02) swelling Tobacco use date assessed: 01/03/24 Fall risk assessment: No Falls in past year Last assessed Fall Risk: 01/03/24 Dental Screening Dental Screen Date: 08/21/23 HPI 3mth f/u HPI Details 68-year-old female with osteoporosis hyp ertension hypothyroid and hypercholesterolemia last seen for physical in 08/24/2023.. Review of the notes may had an ultrasound of the liver showing hepatic steatosis. Incidentally noted bilateral kidney stones right 9 mm and 7 mm. Left has midpole 5 mm stone. Also noted to have a right liver cyst 1.3 cm. Patient had a bone density done with the left femur having osteopenia and the spine heavy osteoporosis. [facility] Medical History (Updated 01/03/24 @ 10:20 by Jose Angel Grigsby MD) LFT elevation Lactose intolerance Irritable bowel syndrome Hypertension Hypothyroid Surgical History History of cataract surgery No pertinent past surgical history Family History Mother No problems noted. Father No problems noted. Sister No problems noted. Sister No problems noted. Sister No problems noted. Sister No problems noted. Son No problems noted. Son No problems noted. Daughter No problems noted. Social History Housing: House Alcohol intake: current Alcohol intake frequency: 0-2 drinks per day Comment: stopped 08/2023 Patient Tobacco Use Status: Never used Tobacco Years Smoked: makes pot gummies e-Cigarette/Vaping Use: Never Used Second Hand Smoke Exposure: No Current occupational status: retired Cognitive needs: No Hearing needs: No Vision needs: No Questionnaire Thrive Questionnaire Date Thrive assessed: 08/21/23 ALESSANDRA-7 AMB Questionnaire ALESSANDRA-7 Date ALESSANDRA - 7 assessed: 08/21/23 Source: Developed by Drs. Harjeet Zarate, Jennifer Jarvis, Rahat Stallings and colleagues, with an educational ghassan from [employer]. Physical exam (Primary Care) Vital Signs: Last Vital Signs Pulse 77 01/03/24 10:03 BP 120/62 01/03/24 10:03 Pulse Ox 98 01/03/24 10:03 Oxygen Delivery Method Room Air 01/03/24 10:03 BMI result Body Mass Index 24.6 Tobacco/Smoking Status: Tobacco use Status Tobacco use date assessed 01/03/24 01/03/24 10:07 Patient Tobacco Use Status Never used Tobacco 01/03/24 10:07 e-Cigarette/Vaping Use Never Used 01/03/24 10:07 Thrive Assessment: Date of Thrive Assessment Date Thrive assessed 08/21/23 01/03/24 10:07 Const General: alert; No acute distress Eyes Conjunctivae: conjunctivae normal Resp Auscultation: clear to auscultation bilaterally Cardio Rate: regular rate Rhythm: regular rhythm GI Inspection: Yes normal to inspection Extrem General: Yes normal to inspection and No edema Assessment and Plan Assessment & Plan (1) Bilateral renal stones: Comment: August 2023 Increased hepatic parenchymal heterogeneity and echogenicity could be associated with hepatocellular disease/hepatic steatosis and substantially limits visualization. Correlation with liver function tests and clinical exam recommended to determine further management. 2. Bilateral renal calculi. No hydronephrosis. 3. Right hepatic 1.3 cm cyst. Code(s): N20.0 - Calculus of kidney Plan: Keep well hydrated to prevent kidney stones and to prevent it from getting bigger. (2) Hepatic steatosis: Comment: August 2023 Increased hepatic parenchymal heterogeneity and echogenicity could be associated with hepatocellular disease/hepatic steatosis and substantially limits visualization. Correlation with liver function tests and clinical exam recommended to determine further management. 2. Bilateral renal calculi. No hydronephrosis. 3. Right hepatic 1.3 cm cyst. Code(s): K76.0 - Fatty (change of) liver, not elsewhere classified Plan: Low-fat diet and exercise (3) Impaired fasting blood sugar: Code(s): R73.01 - Impaired fasting glucose Plan: Decrease the amount of carbohydrate intake, pasta, bread, rice and potatoes are all sugar and that is aside from all the sweet stuff, remember that fruits are good but they are Sweet also. (4) Hypercholesterolemia: Code(s): E78.00 - Pure hypercholesterolemia, unspecified Plan: Avoid fried foods, chicken skin, eggs, butter margarine, pastries and meat. Be it pork or beef they have a lot of cholesterol LDL goal of less than 130 and triglyceride of less than 150. (5) Osteoporosis: Comment: October 2020, August 2023 Code(s): M81.0 - Age-related osteoporosis without current pathological fracture Plan: Discussed about calcium and vitamin-D and medication to help with the bone. (6) Hypertension: Code(s): I10 - Essential (primary) hypertension Plan: Continue with blood pressure medication. Decrease salt intake and exercise patient's blood pressure presently is normal (7) Hypothyroid: Code(s): E03.9 - Hypothyroidism, unspecified Qualifiers: Hypothyroidism type: acquired Qualified Code(s): E03.9 - Hypothyroidism, unspecified Plan: Continue with thyroid medication Coding Level of Care Code Est Pt Level 4 (52037) Diagnoses Bilateral renal stones N20.0 Hepatic steatosis K76.0 Impaired fasting blood sugar R73.01 Hypercholesterolemia E78.00 Osteoporosis M81.0 Hypertension I10 Acquired hypothyroidism E03.9 Hypothyroidism type: acquired
[2024-01-03 10:03] VITALS: BP 120/62; PULSE 77; O2SAT 98; BMI 24.6
== END 2024-01-03 10:42 | disposition home or self-care (01) ==
PROVIDERS: PCP Internal Medicine; Visit Provider Internal Medicine
DX: N20.0 Calculus of kidney (principal); K76.0 Fatty (change of) liver, not elsewhere classified; R73.01 Impaired fasting glucose; E78.00 Pure hypercholesterolemia, unspecified; M81.0 Age-related osteoporosis without current pathological fracture; I10 Essential (primary) hypertension; E03.9 Hypothyroidism, unspecified
CPT/HCPCS: 99214

== ENCOUNTER 2024-09-23 09:09 | Outpatient (AMB) | payer MEDICARE, OTHER, SELFPAY ==
[2024-09-23 09:13] VITALS: BP 130/62; PULSE 65; O2SAT 99; BMI 25.3
--- NOTE | 2024-09-23 09:13 | A.OFFPC_ITS ---
Vital Signs 09/23/24 09:13 Height 5 ft 1 in Weight 134 lb BMI 25.3 BP 130/62 Blood Pressure Location Lt brachial Position Sitting Pulse 65 Pulse Source Pulse Oximeter Pulse Oximetry (%) 99 Oxygen Delivery Method Room Air Intake Visit Reasons: annual exam Allergies latex Allergy (Mild, Verified 09/23/24 09:14) breathing issues pineapple Allergy (Unknown, Verified 09/23/24 09:14) Unknown sulfacetamide [From Sulfacet-R] Allergy (Unknown, Verified 09/23/24 09:14) Unknown sulfur [From Sulfacet-R] Allergy (Unknown, Verified 09/23/24 09:14) Unknown high dose flu shot Adverse Reaction (Severe, Uncoded 09/23/24 09:14) swelling Medication List - Last Reconciled 09/23/24 by Jose Angel Grigsby MD artificial tears([id number]) drps ophthalmic (eye) Bacillus coagulans-inulin 1 billion-250 cell-mg (Probiotic with Prebiotic) caps PO cyclosporine 0.09% (Cequa) 1 drp ophthalmic (eye) Q12H levothyroxine 88 mcg PO DAILY magnesium glycinate mg PO metronidazole 0.75% 1 appl topical BID multivitamin 1 tab PO DAILY vitamin A-vitamin C-vit E-min 1 tab PO DAILY [zocular spray ] Tobacco use date assessed: 09/23/24 Fall risk assessment: No Falls in past year Last assessed Fall Risk: 09/23/24 Dental Screening Dental Screen Date: 09/23/24 Did you have a dental visit in the last 12 months?: Yes Did you have a dental problem in the last 6 months where you did not have access to dental care?: No Was dental information given to patient?: Patient has dentist [facility] Medical History (Updated 01/03/24 @ 10:20 by Jose Angel Grigsby MD) LFT elevation Lactose intolerance Irritable bowel syndrome Hypertension Hypothyroid Surgical History History of cataract surgery No pertinent past surgical history Family History Mother No problems noted. Father No problems noted. Sister No problems noted. Sister No problems noted. Sister No problems noted. Sister No problems noted. Son No problems noted. Son No problems noted. Daughter No problems noted. Social History (Updated 09/23/24 @ 09:37 by Jose Angel Grigsby MD) Housing: House Alcohol intake: current Alcohol intake frequency: 0-2 drinks per day Comment: stopped 08/2023 2 glass of wine QD Patient Tobacco Use Status: Never used Tobacco Tobacco use type: Cigarette Years Smoked: makes pot gummies e-Cigarette/Vaping Use: Never Used Second Hand Smoke Exposure: No Current occupational status: retired Cognitive needs: No Hearing needs: No Vision needs: Yes Questionnaire PHQ-9 Over the last 2 weeks, how often have you been bothered by any of the following problems? 1. Little interest or pleasure in doing things: not at all 2. Feeling down, depressed, or hopeless: not at all 3. Trouble falling or staying asleep, or sleeping too much: not at all 4. Feeling tired or having little energy: not at all 5. Poor appetite or overeating: not at all 6. Feeling bad about yourself - or that you are a failure or have let yourself o r your family down: not at all 7. Trouble concentrating on things, such as reading the newspaper or watching television: not at all 8. Moving or speaking so slowly that other people could have noticed. Or the opposite - being so fidgety or restless that you have been moving around a lot more than usual: not at all 9. Thoughts that you would be better off or of hurting yourself in some way: not at all Total score: 0 Depression Screening Interpretation: Negative Depression Screening Done: Yes 47373 - PHQ-9 Billing: Yes Source: Developed by Drs. Harjeet Zarate, Jennifer Jarvis, Rahat rodriguez nd colleagues, with an educational ghassan from [employer]. Thrive Questionnaire Date Thrive assessed: 09/22/24 I am a: Patient What is your living situation today?: I have a steady place to live Within the past 12 months, did the food you bought not last and you didn't have the money to get more?: Never true Within the past 12 months, did you worry whether your food would run out before you got money to buy more?: Never true Do you have trouble paying for medicines?: No Do you have trouble getting transportation to medical appointments?: No Do you have trouble paying your heating and electricity bill?: No Do you have trouble taking care of your child, family member or friend?: No Do you have trouble with day-to-day activities such as bathing, preparing meals, shopping, managing finances, etc.?: No Are you currently unemployed and looking for a job?: No Are you interested in more education?: No Please select the resources that you would like help with: None Currently or been in a relationship where the following occur: No concerns reported THRIVE Score: 0 AUDIT C Alcohol Use Questionnaire (AUDIT-C) 1. How often do you have a drink containing alcohol?: 4 or more times a week 2. How many drinks containing alcohol do you have on a typical day when you are drinking?: 1 or 2 3. How often do you have six or more drinks on one occasion?: Never Total Score: 4 ALESSANDRA-7 AMB Questionnaire ALESSANDRA-7 Date ALESSANDRA - 7 assessed: 09/23/24 Feeling nervous, anxious, or on edge: 0 = Not at all Not being able to stop or control worryin = Not at all Worrying too much about different things: 0 = Not at all Trouble relaxin = Not at all Being so restless that it is hard to sit still: 0 = Not at all Becoming easily annoyed or irritable: 0 = Not at all Feeling afraid as if something awful might happen: 0 = Not at all Total ALESSANDRA-7 score (0-4 normal; 5-9 mild; 10-14 moderate; 15-21 severe): 0 Source: Developed by Drs. Harjeet Zarate, Jennifer Jarvis, Rahat Stallings and colleagues, with an educational ghassan from [employer]. ALESSANDRA-7 Assessment Billing ALESSANDRA-7 Assessment Tool: ALESSANDRA-7 Assessment 16196 Review of Systems Const Denies poor appetite and Denies weakness Eyes Denies no additional complaints ENT Reports Normal hearing present, Denies dizziness, Denies nasal congestion, Denies tinnitus and Denies sore throat Card Denies chest pain, Denies syncope, Denies rapid heart rate and Denies dyspnea Resp Denies cough and Denies dyspnea GI Denies change in stool character, Reports constipation, Denies diarrhea, Denies nausea and Denies vomiting Denies urinary frequency, Denies difficulty voiding and Denies dysuria Neuro Reports Normal hearing present, Denies confusion, Denies dizziness, Denies syncope and Denies weakness Psych Denies confusion Physical exam (Primary Care) Vital Signs: Last Vital Signs Pulse 65 09/23/24 09:13 BP 130/62 09/23/24 09:13 Pulse Ox 99 09/23/24 09:13 Oxygen Delivery Method Room Air 09/23/24 09:13 BMI result Body Mass Index 25.3 Tobacco/Smoking Status: Tobacco use Status Tobacco use date assessed 09/23/24 09/23/24 09:18 Patient Tobacco Use Status Never used Tobacco 09/23/24 09:18 Tobacco use type Cigarette 09/23/24 09:18 e-Cigarette/Vaping Use Never Used 09/23/24 09:18 PHQ-9: PHQ-9 Score PHQ-9: Total score 0 09/23/24 09:18 Depression Screening Interpretation: Negative Thrive Assessment: Date of Thrive Assessment Date Thrive assessed 09/22/24 09/23/24 09:18 Currently or been in a relationship where the following occur: No concerns reported Const General: alert and awake; No confusion Orientation/consciousness: No confusion HENMT Head: Yes normocephalic Ears: external ears normal and TM's normal bilaterally Face and sinus: Yes normal facial exam Mouth: moist mucous membranes Throat: Yes tonsils normal Eyes Conjunctivae: conjunctivae normal Pupils: Equal, round and reactive pupils present and Pupil accommodation reflex normal Direct Ophthalmoscopy: normal light reflex Neck Neck: No lymphadenopathy Thyroid: Thyroid normal Chest Chest palpation & inspection: normal inspection of the chest Resp Effort & Inspection: normal respiratory effort and no audible wheezes Auscultation: clear to auscultation bilaterally, no crackles, no wheezes and lung sounds not diminished Cardio Rate: regular rate Rhythm: regular rhythm Peripheral pulses: radial pulses present and dorsalis pedis present GI Other: Guaiac negative stools Palpation (GI): no masses Auscultation: normal bowel sounds and normoactive bowel sounds Skin General skin exam: no rashes or lesions noted Rashes: no rashes Neuro General: deep tendon reflexes 2+ bilaterally and No confusion Cranial nerves: Yes Equal, round and reactive pupils present, Yes Midline tongue present, Yes Normal hearing present and Yes Ability to bilaterally elevate shoulders present Cognition (Neuro): normal cognition Gait exam (Neuro): Normal gait present Motor exam (neuro): 5/5 motor strength present throughout Deep tendon reflexes (DTR's): Right brachioradialis reflex intensity grade: 2+, Left brachioradialis reflex intensity grade: 2+, Right patellar reflex intensity grade: 2+ and Left patellar reflex intensity grade: 2+ Extrem General: No edema Coding Level of Care Code Est Pt Prev Care >65y(46334) Diagnoses Annual physical exam Z00.00 Acquired hypothyroidism E03.9 Hypothyroidism type: acquired Osteoporosis M81.0 Hypercholesterolemia E78.00 Impaired fasting blood sugar R73.01 Hepatic steatosis K76.0 Bilateral renal stones N20.0 Additional Codes ALESSANDRA-7 Assessment Billing - ALESSANDRA-7 Assessment Tool: ALESSANDRA-7 Assessment 00256 ([id number]) PHQ-9 - 67397 - PHQ-9 Billing: Yes ([id number]) Assessment & Plan Assessment & Plan (1) Annual physical exam: Code(s): Z00.00 - Encounter for general adult medical examination without abnormal findings Category: Medical Plan: Patient is advised to eat healthy, keep well hydrated, keep active and have adeq uate sleep. (2) Hypothyroid: Code(s): E03.9 - Hypothyroidism, unspecified Category: Medical Qualifiers: Hypothyroidism type: acquired Qualified Code(s): E03.9 - Hypothyroidism, unspecified Plan: Continue with thyroid medication and blood work requested (3) Osteoporosis: Comment: October 2020, August 2023 Code(s): M81.0 - Age-related osteoporosis without current pathological fracture Category: Medical Plan: Discussion about calcium and vitamin-D and medications to help with bones. (4) Hypercholesterolemia: Code(s): E78.00 - Pure hypercholesterolemia, unspecified Category: Medical Plan: Avoid fried foods, chicken skin, eggs, butter margarine, pastries and meat. Be it pork or beef they have a lot of cholesterol LDL goal of less than 130 and triglyceride of less than 150 (5) Impaired fasting blood sugar: Code(s): R73.01 - Impaired fasting glucose Category: Medical Plan: Decrease the amount of carbohydrate intake, pasta, bread, rice and potatoes are all sugar and that is aside from all the sweet stuff, remember that fruits are good but they are Sweet also. (6) Hepatic steatosis: Comment: August 2023 Increased hepatic parenchymal heterogeneity and echogenicity could be associated with hepatocellular disease/hepatic steatosis and substantially limits visualization. Correlation with liver function tests and clinical exam recommended to determine further management. 2. Bilateral renal calculi. No hydronephrosis. 3. Right hepatic 1.3 cm cyst. Code(s): K76.0 - Fatty (change of) liver, not elsewhere classified Category: Medical Plan: Low-fat diet and exercise (7) Bilateral renal stones: Comment: August 2023 Increased hepatic parenchymal heterogeneity and echogenicity could be associated with hepatocellular disease/hepatic steatosis and substantially limits visualization. Correlation with liver function tests and clinical exam recommended to determine further management. 2. Bilateral renal calculi. No hydronephrosis. 3. Right hepatic 1.3 cm cyst. Code(s): N20.0 - Calculus of kidney Category: Medical Plan: Keep well hydrated. Plan History of Present Illness The patient is a 69-year-old female presenting for a routine physical examinat ion. Her medical history includes multiple chronic conditions such as hypothyroidism, hypertension, osteoporosis, hypercholesterolemia, insomnia, and nephrolithiasis. Currently, her thyroid condition is being managed with medication, and she maintains regular monitoring of her blood pressure levels to manage hypertension. For her osteoporosis, there is no significant change in the spine since the last evaluation, although some improvement has been noted in the hip region. She practices dietary modifications and regular exercise to assist with her bone health, opting against additional pharmacologic treatments. Hypercholesterolemia is under control with an LDL reading of 133 mg/dL, though still elevated. She continues pursuing a low-fat diet and exercise to help manage this condition and her elevated blood glucose levels, the latter noted to be 101 mg/dL recently. The patient's insomnia, demonstrated by non-surgical management efforts, is not interfering with her daily functions. Lifestyle choices were reviewed, including an absence of alcohol consumption and smoking. Her routine involves regular physical activity, including type 2 aerobic exercises five times a week. Previously noted irritable bowel symptoms have resolved. Current kidney stone management involves significant hydration to minimize the risk of kidney stones. Health Maintenance - Continued thyroid medication for hypothyroidism - Monitoring and discussion around blood pressure levels for hypertension management - Bone density test scheduled, annual follow-up on osteoporosis management - LDL goal set for hypercholesterolemia management with dietary and exercise interventions - Blood sugar management with low-fat diet and exercise recommendations - Bone health discussions regarding calcium, vitamin D, and general bone medications - Shingles vaccination completed (two-part series) - Pneumonia vaccination completed in 2022 - Tetanus shot is current Social History - Regular exercise reported: type 2 aerobic exercises five times weekly - No current use of hard liquor; two glasses of wine daily - No tobacco use or recreational drug use, although edibles (pot gobbies) are consumed for sleep - Consumes lactate milk due to lactose intolerance - Diet includes multivitamins, magnesium, fruits, and vegetables Review of Systems - General: Reports well-being, no recent surgeries - Cardiovascular: Denies chest pain, dizziness - Gastrointestinal: Reports a past episode of irritable bowel syndrome while traveling, denies current issues - Genitourinary: Denies nocturia; no current urinary complaints - Musculoskeletal: Denies recent fractures - Neurological: Denies syncope, dizziness - Psychiatric: Denies issues with insomnia management - Endocrine: Reports ongoing thyroid medication use - Hematologic/Lymphatic: No bleeding issues - Immunologic: Reports completion of shingles vaccination series Physical Exam General: Cooperative, healthy appearing, comfortable, no acute distress and well developed Orientation: Patient oriented x3 Limitations: No limitations Head: Normal to inspection Ears: Hearing grossly normal bilaterally Nose: Normal external nose present Face and sinus: Normal facial exam Eyes: Appearance normal, both eyes and all related structures Neck: Normal visual inspection and Yes full ROM Respiratory: Normal respiratory effort and able to speak in complete sentences. Clear to auscultation bilaterally Cardiovascular: Regular rate and rhythm. Normal S1 and S2 GI: Normal to inspection. Soft to palpation and nontender Skin: No rashes or lesions noted Neuro: Patient oriented x3 Extremities: Normal to inspection Results - Labs: Normal blood count, normal electrolytes, blood sugar elevated at 101 mg/dL, LDL cholesterol elevated at 133 mg/dL in 2023 - Other Tests: Bone density test due for August 2023, previous colonoscopy done at age 60 Plan The patient will continue with current thyroid hormone therapy for hypothyroidism, with blood pressure monitored to ensure control of hypertension. Osteoporosis management will focus on non-pharmacological interventions supported by exercise and dietary measures. Plan to lower LDL cholesterol to below 130 mg/dL remains, aiming for optimization through diet and activity changes. However, the patient will adhere to lifestyle measures to address slightly elevated glucose levels. Continued adequate hydration is recommended for kidney stones management. Vaccination status is current with no further needs at this time. Scheduled bone density evaluation will provide necessary insights into osteoporosis progression. Further follow-up to assess ongoing management and review new diagnostic information is advised. Patient was informed and verbally consented to the use of an ambient scribe for clinic note documentation during this visit. Discussion Notes During the visit, we reviewed the patient's current chronic conditions and discussed the importance of ongoing management strategies. The patient is to maintain current thyroid medication with periodic lab checks to evaluate efficacy. We discussed non-drug approaches to manage hypertension and osteoporosis, emphasizing lifestyle measures. Eating habits, such as reducing cholesterol intake to manage hypercholesterolemia, were reviewed, aiming for a target LDL of less than 130 mg/dL. I highlighted the importance of her dietary choices and consistent exercise in managing blood glucose and lipid levels. The patient's willingness was acknowledged to avoid additional medications for osteoporosis, focusing on regular bone density monitoring. The plan includes m aintaining up-to-date vaccinations, completed shingles series, and review upcoming bone density testing. If exacerbations occur or significant results arise from scheduled labs, rapid follow-up will be essential. Patient Instructions - Continue taking your thyroid medication as prescribed. - Monitor your blood pressure regularly and report significant changes. - Maintain your exercise routine for bone health; aim for daily activity. - Follow a low-fat diet, focusing on reducing cholesterol for heart health. - Stay well-hydrated to help prevent kidney stones. - Ensure your vaccinations remain current; shingles vaccine series complete. - Schedule and attend your upcoming bone density test. - Report any significant changes or concerns about your health promptly. Orders: Orders UA CC w/rflx Micro + Cult Today K76.0 - Fatty (change of) liver, not elsewhere classified, R30.0 - Dysuria Thyroid Stimulating Hormone Today K76.0 - Fatty (change of) liver, not elsewhere classified Vitamin B12 and Folate Today K76.0 - Fatty (change of) liver, not elsewhere classified Complete Blood Count Auto Diff Today K76.0 - Fatty (change of) liver, not elsewhere classified Comprehensive Met. Panel Today K76.0 - Fatty (change of) liver, not elsewhere classified Lipid Panel Today E78.00 - Pure hypercholesterolemia, unspecified, K76.0 - Fatty (change of) liver, not elsewhere classified Vitamin D 25-OH Total Today K76.0 - Fatty (change of) liver, not elsewhere classified Free T4 (Free Thyroxine) Today K76.0 - Fatty (change of) liver, not elsewhere classified Hemoglobin A1c Today K76.0 - Fatty (change of) liver, not elsewhere classified
== END 2024-09-23 09:51 | disposition home or self-care (01) ==
LOC: HO.HMCH 09:10
PROVIDERS: PCP Internal Medicine; Visit Provider Internal Medicine
DX: Z00.00 Encounter for general adult medical examination without abnormal findings (principal); E03.9 Hypothyroidism, unspecified; M81.0 Age-related osteoporosis without current pathological fracture; E78.00 Pure hypercholesterolemia, unspecified; R73.01 Impaired fasting glucose; K76.0 Fatty (change of) liver, not elsewhere classified; N20.0 Calculus of kidney

== ENCOUNTER 2024-09-23 09:09 | Outpatient (REF) | payer MEDICARE, OTHER, SELFPAY ==
[2024-09-23 10:16] LABS: MANUAL DIFF FLAG NO
[2024-09-23 10:36] LABS: Basophils Percent Auto 0.5 % (0-2); Eosinophils Absolute Auto 0.1 X10*3/uL (0.0-0.4); Eosinophils Percent Auto 0.9 % (0-4); Hematocrit 43.2 % (37.0-47.0); Hemoglobin 14.7 g/dl (12.0-16.0); Imm Gran Abs Auto 0.02 X10*3/uL (0.00-0.03); Imm Gran Pct Auto 0.3 % (0.0-0.4); Lymphocytes Absolute Auto 2.7 X10*3/uL (1.2-4.9); Lymphocytes Percent Auto 41.5 % (20-40); Mean Corpuscular Volume 94.1 fL (80.0-98.0); Mean Platelet Volume 9.4 fL (9.4-12.3); Monocytes Absolute Auto 0.4 X10*3/uL (0.1-1.2); Monocytes Percent Auto 6.9 % (2-11); Neutrophils Absolute Auto 3.2 x10*3/uL (2.0-8.3); Neutrophils Percent Auto 49.9 % (45-73); Platelet Count 218 X10*3/uL (160-400); Red Blood Count 4.59 X10*6/uL (4.20-5.50); Red Cell Distribution Width 12.5 % (11.0-16.0); White Blood Count 6.4 X10*3/uL (4.8-10.8)
[2024-09-23 11:01] LABS: Appearance Urine Clear; Color Urine Yellow; Glucose Urine UA Negative (Negative); Leukocyte Esterase Urine Negative (Negative); Nitrite Urine Negative (Negative); Specific Gravity - Urine <= 1.005 (1.005-1.025); UMIC TRIGGER UACC YES; Urine Blood Trace (Negative); Urine Ketones Negative (Negative); Urine Protein Negative (Neg-Trace)
[2024-09-23 11:08] LABS: Estimated Average Glucose 108 mg/dL; Hemoglobin A1C 132.6821 umol/L; Hemoglobin A1c % 5.4 % (<6.0); Total Hemoglobin (HGBA1C) 3733.7174 umol/L
[2024-09-23 11:13] LABS: Bacteria Urine None Seen (None Seen); Hyaline Casts Urine 0-2 /LPF (0-2); RBC Urine 0-2 /HPF (0-2); Squamous Epithelial Cell Urine 0-2 /HPF (0-2); WBC Urine 0-5 /HPF (0-5)
[2024-09-23 11:16] LABS: Alanine Aminotransferase 20 U/L (0-31); Albumin Level 4.6 g/dL (3.5-5.0); Alkaline Phosphatase 65 U/L (39-117); Anion Gap 13 (12-20); Aspartate Amino Transferase 21 U/L (5-31); Bilirubin Total 0.7 mg/dL (0.0-1.0); Blood Urea Nitrogen 11 mg/dL (9-16); Calcium 9.4 mg/dL (8.4-10.2); Carbon Dioxide 26 mmol/L (22-29); Chloride 105 mmol/L (96-108); Cholesterol 226 mg/dL (<200); Estimated Glomerular Filt Rate > 60; Glucose Random 103 mg/dL (60-115); HDL Cholesterol 68 mg/dL (>40); LDL Cholesterol Calculated 141 mg/dL (<100); Potassium 4.6 mmol/L (3.3-5.1); Sodium 139 mmol/L (135-145); Total Protein 7.5 g/dL (6.5-8.0); Triglycerides 86 mg/dL (<150)
[2024-09-23 11:32] LABS: Free T4 (Free Thyroxine) 1.04 ng/dL (0.71-1.85); Thyroid Stimulating Hormone 0.92 uIU/mL (0.32-4.0); Vitamin D 25-OH Total 36.8 ng/mL (>30)
[2024-09-23 11:40] LABS: Folate 11.2 ng/mL (> or = 4.0); Vitamin B12 402 pg/mL (200-900)
== END 2024-09-23 09:10 | disposition home or self-care (01) ==
LOC: HO.LAB 09:09
PROVIDERS: PCP Internal Medicine; Visit Provider Internal Medicine
DX: Z00.00 Encounter for general adult medical examination without abnormal findings (principal); E03.9 Hypothyroidism, unspecified; M81.0 Age-related osteoporosis without current pathological fracture; E78.00 Pure hypercholesterolemia, unspecified; R73.01 Impaired fasting glucose; K76.0 Fatty (change of) liver, not elsewhere classified; N20.0 Calculus of kidney; R30.0 Dysuria
CPT/HCPCS: 36415; 80053; 80061; 81001; 81003; 82306; 82607; 82746; 83036; 84439; 84443; 85025; 96127; 99397

== ENCOUNTER 2024-09-30 13:46 | Outpatient (REF) | payer MEDICARE, OTHER, SELFPAY | END 2024-09-30 13:47 | disposition home or self-care (01) | LOC: HO.MAMMO 13:46 | PROVIDERS: PCP Internal Medicine; Visit Provider Internal Medicine | DX: Z12.31 Encounter for screening mammogram for malignant neoplasm of breast (principal) | CPT/HCPCS: 77063; 77067 ==

== ENCOUNTER → 2024-09-30 14:00 | Outpatient (BNV) | payer MEDICARE, OTHER, SELFPAY | PROVIDERS: PCP Internal Medicine; Visit Provider Internal Medicine | DX: Z12.31 Encounter for screening mammogram for malignant neoplasm of breast (principal) | CPT/HCPCS: 77063; 77067 ==

== ENCOUNTER 2025-01-08 14:19 | Outpatient (AMB) | payer MEDICARE, OTHER, SELFPAY ==
[2025-01-08 14:34] VITALS: BP 162/88; PULSE 73; O2SAT 98; BMI 25.9
--- NOTE | 2025-01-08 14:34 | A.OFFPC_ITS ---
Vital Signs 01/08/25 14:34 Height 5 ft 1 in Weight 137 lb BMI 25.9 BP 162/88 H Blood Pressure Location Lt brachial Position Sitting Pulse 73 Pulse Source Pulse Oximeter Pulse Oximetry (%) 98 Oxygen Delivery Method Room Air Intake Visit Reasons: 3mth f/u Allergies latex Allergy (Mild, Verified 01/08/25 14:34) breathing issues pineapple Allergy (Unknown, Verified 01/08/25 14:34) Unknown sulfacetamide (From Sulfacet-R) Allergy (Unknown, Verified 01/08/25 14:34) Unknown sulfur (From Sulfacet-R) Allergy (Unknown, Verified 01/08/25 14:34) Unknown high dose flu shot Adverse Reaction (Severe, Uncoded 01/08/25 14:34) swelling Tobacco use date assessed: 09/23/24 Fall risk assessment: No Falls in past year Last assessed Fall Risk: 01/08/25 Dental Screening Dental Screen Date: 09/23/24 [facility] Medical History (Updated 01/03/24 @ 10:20 by Jose Angel Grigsby MD) LFT elevation Lactose intolerance Irritable bowel syndrome Hypertension Hypothyroid Surgical History History of cataract surgery No pertinent past surgical history Family History Mother No problems noted. Father No problems noted. Sister No problems noted. Sister No problems noted. Sister No problems noted. Sister No problems noted. Son No problems noted. Son No problems noted. Daughter No problems noted. Social History (Updated 09/23/24 @ 09:37 by Jose Angel Grigsby MD) Housing: House Alcohol intake: current Alcohol intake frequency: 0-2 drinks per day Comment: stopped 08/2023 2 glass of wine QD Patient Tobacco Use Status: Never used Tobacco Tobacco use type: Cigarette Years Smoked: makes pot gummies e-Cigarette/Vaping Use: Never Used Second Hand Smoke Exposure: No Current occupational status: retired Cognitive needs: No Hearing needs: No Vision needs: Yes Questionnaire PHQ-9 Over the last 2 weeks, how often have you been bothered by any of the following problems? 1. Little interest or pleasure in doing things: not at all 2. Feeling down, depressed, or hopeless: not at all 3. Trouble falling or staying asleep, or sleeping too much: not at all 4. Feeling tired or having little energy: not at all 5. Poor appetite or overeating: not at all 6. Feeling bad about yourself - or that you are a failure or have let yourself or your family down: not at all 7. Trouble concentrating on things, such as reading the newspaper or watching television: not at all 8. Moving or speaking so slowly that other people could have noticed. Or the opposite - being so fidgety or restless that you have been moving around a lot more than usual: not at all 9. Thoughts that you would be better off or of hurting yourself in some way: not at all Total score: 0 Depression Screening Interpretation: Negative Depression Screening Done: Yes Source: Developed by Drs. Harjeet Zarate, Jennifer Jarvis, Rahat Stallings and colleagues, with an educational ghassan from [employer]. Thrive Questionnaire Date Thrive assessed: 09/22/24 I am a: Patient What is your living situation today?: I have a steady place to live Within the past 12 months, did the food you bought not last and you didn't have the money to get more?: Never true Within the past 12 months, did you worry whether your food would run out before you got money to buy more?: Never true Do you have trouble paying for medicines?: No Do you have trouble getting transportation to medical appointments?: No Do you have trouble paying your heating and electricity bill?: No Do you have trouble taking care of your child, family member or friend?: No Do you have trouble with day-to-day activities such as bathing, preparing meals, shopping, managing finances, etc.?: No Are you currently unemployed and looking for a job?: No Are you interested in more education?: No Please select the resources that you would like help with: None Currently or been in a relationship where the following occur: No concerns reported THRIVE Score: 0 AUDIT C Alcohol Use Questionnaire (AUDIT-C) 1. How often do you have a drink containing alcohol?: 4 or more times a week 2. How many drinks containing alcohol do you have on a typical day when you are drinking?: 1 or 2 3. How often do you have six or more drinks on one occasion?: Never Total Score: 4 ALESSANDRA-7 AMB Questionnaire ALESSANDRA-7 Date ALESSANDRA - 7 assessed: 09/23/24 Source: Developed by Drs. Harjeet Zarate, Jennifer Jarvis, Rahat Stallings and colleagues, with an educational ghassan from [employer]. Physical exam (Primary Care) Vital Signs: Last Vital Signs Pulse 73 01/08/25 14:34 BP 162/88 H 01/08/25 14:34 Pulse Ox 98 01/08/25 14:34 Oxygen Delivery Method Room Air 01/08/25 14:34 BMI result Body Mass Index 25.9 Tobacco/Smoking Status: Tobacco use Status Tobacco use date assessed 09/23/24 01/08/25 14:35 Patient Tobacco Use Status Never used Tobacco 01/08/25 14:35 Tobacco use type Cigarette 01/08/25 14:35 e-Cigarette/Vaping Use Never Used 01/08/25 14:35 PHQ-9: PHQ-9 Score PHQ-9: Total score 0 01/08/25 14:57 Depression Screening Interpretation: Negative Thrive Assessment: Date of Thrive Assessment Date Thrive assessed 09/22/24 01/08/25 14:35 Currently or been in a relationship where the following occur: No concerns reported Const General: alert; No acute distress Eyes Conjunctivae: conjunctivae normal Resp Auscultation: clear to auscultation bilaterally Cardio Rate: regular rate Rhythm: regular rhythm GI Inspection: Yes normal to inspection Extrem General: Yes normal to inspection and No edema Coding Level of Care Code Est Pt Level 4 (75001) Complex EM visit Add On G2211 Diagnoses Hypertension I10 Hypercholesterolemia E78.00 Impaired fasting blood sugar R73.01 Acquired hypothyroidism E03.9 Hypothyroidism type: acquired Hepatic steatosis K76.0 Bilateral renal stones N20.0 Assessment & Plan Assessment & Plan (1) Hypertension: Code(s): I10 - Essential (primary) hypertension Category: Medical Plan: Advised to continue monitoring blood pressure. Low-salt diet (2) Hypercholesterolemia: Code(s): E78.00 - Pure hypercholesterolemia, unspecified Category: Medical Plan: Avoid fried foods, chicken skin, eggs, butter margarine, pastries and meat. Be it pork or beef they have a lot of cholesterol LDL goal of less than 130 and triglyceride of less than 150 (3) Impaired fasting blood sugar: Code(s): R73.01 - Impaired fasting glucose Category: Medical Plan: Decrease the amount of carbohydrate intake, pasta, bread, rice and potatoes are all sugar and that is aside from all the sweet stuff, remember that fruits are good but they are Sweet also. (4) Hypothyroid: Code(s): E03.9 - Hypothyroidism, unspecified Category: Medical Qualifiers: Hypothyroidism type: acquired Qualified Code(s): E03.9 - Hypothyroidism, unspecified Plan: Continue with thyroid medication (5) Hepatic steatosis: Comment: August 2023 Increased hepatic parenchymal heterogeneity and echogenicity could be associated with hepatocellular disease/hepatic steatosis and substantially limits visualization. Correlation with liver function tests and clinical exam recommended to determine further management. 2. Bilateral renal calculi. No hydronephrosis. 3. Right hepatic 1.3 cm cyst. Code(s): K76.0 - Fatty (change of) liver, not elsewhere classified Category: Medical Plan: Low-fat diet and exercise (6) Bilateral renal stones: Comment: August 2023 Increased hepatic parenchymal heterogeneity and echogenicity could be associated with hepatocellular disease/hepatic steatosis and substantially limits visualization. Correlation with liver function tests and clinical exam recommended to determine further management. 2. Bilateral renal calculi. No hydronephrosis. 3. Right hepatic 1.3 cm cyst. Code(s): N20.0 - Calculus of kidney Category: Medical Plan: Keep well hydrated Plan History of Present Illness The patient is a 69-year-old female presenting for a routine follow-up and management of chronic conditions. Hypertension has been a long-standing issue for the patient, with recent discussions focusing on home monitoring and lifestyle modifications such as a low salt diet. She has been advised to monitor her blood pressure at home, especially after physical exertion, and to rest for a few minutes before taking measurements. The patient has a history of hypothyroidism, for which she is currently on medication. She has been advised to continue her current thyroid medication regimen. Osteoporosis was diagnosed previously, with the last bone density test conducted in August 2023. The patient is aware of the need for regular monitoring to manage this condition. The patient reports insomnia, which has been a persistent issue. Hypercholesterolemia is being managed with dietary modifications, aiming for an LDL goal of less than 130 mg/dL. The patient has impaired glucose metabolism, with elevated blood sugar levels noted in recent tests, although hemoglobin A1c remains normal. Lifestyle modifications, including a low-fat diet and regular exercise, have been recommended. Hepatic steatosis has been identified, but liver function tests remain within normal limits. Nephrolithiasis is a concern, with kidney stones present in both kidneys. The patient experiences discomfort with exertion, which resolves with rest. A follow-up ultrasound has been requested to assess the current status of the stones. Health Maintenance - Mammogram scheduled for September 2024 - Bone density test last conducted in August 2023 - Advised to maintain a low salt diet for hypertension management - Recommended low-fat diet and regular exercise for glucose metabolism and cholesterol management - Advised to stay well-hydrated to manage nephrolithiasis Social History - Exercise: Engages in [employer] and walking, indicating a physically active lifestyle - Hydration: Consumes at least 74 ounces of water daily Review of Systems - Cardiovascular: Reports elevated blood pressure with exertion. Denies chest pain. - Endocrine: Reports insomnia. Denies other endocrine symptoms. - Gastrointestinal: Denies significant bowel movement issues, reports infrequent dirt in bowel movements. - Genitourinary: Reports discomfort with exertion due to kidney stones. Physical Exam - Cardiovascular: Heart auscultation performed, no abnormalities noted Results - Labs: Normal blood counts, normal electrolytes, normal renal function, elevated blood sugar, normal hemoglobin A1c, normal liver function tests, elevated LDL cholesterol at 141 mg/dL, normal B12 and folic acid levels, normal thyroid function tests, urine showing some blood Plan Patient was informed and verbally consented to the use of an ambient scribe for clinic note documentation during this visit. 1. Hypertension The patient is advised to continue monitoring her blood pressure at home, particularly after physical exertion, and to maintain a low salt diet to manage her hypertension. 2. Hypothyroidism The patient is advised to continue her current thyroid medication regimen. 3. Osteoporosis The patient is aware of the need for regular monitoring of her bone density, with the last test conducted in August 2023. 4. Hypercholesterolemia Dietary modifications are recommended to achieve an LDL cholesterol goal of less than 130 mg/dL. 5. Impaired Glucose Metabolism The patient is advised to follow a low-fat diet and engage in regular exercise to manage her elevated blood sugar levels. 6. Nephrolithiasis A follow-up ultrasound has been requested to assess the current status of the kidney stones, and the patient is advised to stay well-hydrated. Discussion Notes During the visit, we discussed the importance of monitoring blood pressure at home and maintaining a low salt diet to manage hypertension. We also reviewed the patient's thyroid medication regimen and emphasized the need for regular bone density monitoring due to osteoporosis. Dietary modifications were recommen ded to manage hypercholesterolemia and impaired glucose metabolism. We discussed the current status of the patient's kidney stones and the plan for a follow-up ultrasound. The patient was advised to stay well-hydrated to aid in the management of nephrolithiasis. Patient Instructions - Monitor blood pressure at home, especially after physical activity. - Maintain a low salt diet to help manage blood pressure. - Continue taking thyroid medication as prescribed. - Follow a low-fat diet and engage in regular exercise to manage cholesterol and blood sugar levels. - Stay well-hydrated to help manage kidney stones. - Schedule and attend follow-up ultrasound for kidney stones. Orders: Orders US renal BI Today N20.0 - Calculus of kidney
== END 2025-01-08 15:11 | disposition home or self-care (01) ==
LOC: HO.HMCH 14:20
PROVIDERS: PCP Internal Medicine; Visit Provider Internal Medicine
DX: I10 Essential (primary) hypertension (principal); E78.00 Pure hypercholesterolemia, unspecified; R73.01 Impaired fasting glucose; E03.9 Hypothyroidism, unspecified; K76.0 Fatty (change of) liver, not elsewhere classified; N20.0 Calculus of kidney

== ENCOUNTER → 2025-01-08 14:19 | Outpatient (BNVA) | payer MEDICARE, OTHER, SELFPAY | PROVIDERS: PCP Internal Medicine; Visit Provider Internal Medicine | DX: I10 Essential (primary) hypertension (principal); E78.00 Pure hypercholesterolemia, unspecified; R73.01 Impaired fasting glucose; E03.9 Hypothyroidism, unspecified; K76.0 Fatty (change of) liver, not elsewhere classified; N20.0 Calculus of kidney; M81.0 Age-related osteoporosis without current pathological fracture | CPT/HCPCS: 96127; 99212 ==

== ENCOUNTER 2025-02-17 14:15 | Outpatient (REF) | payer MEDICARE, OTHER, SELFPAY ==
--- NOTE | ~2025-02-17 | US_ITS ---
EXAMINATION: US KIDNEY BILATERAL HISTORY: N20.0 - Calculus of kidney TECHNIQUE: Real-time grayscale ultrasound imaging of the kidneys was performed and images were reviewed. COMPARISON: Correlation is made with an abdominal ultrasound dated 08/29/2023. FINDINGS: Right kidney: The right kidney measures 10.7 x 4.4 x 5.2 cm. Renal parenchymal echotexture and thickness are normal. There is a 10 x 11 x 9 mm cyst at the upper pole demonstrating wall calcification. There is an additional 11 x 11 x 10 mm cyst at the lower pole. There is a 3 mm nonobstructing calculus at the upper pole. There is no hydronephrosis. Left Kidney: The left kidney measures 10.2 x 5.5 x 4.7 cm. Renal parenchymal echotexture and thickness are normal. There are no masses. There is a 3 mm nonobstructing calculus in the interpolar region and an additional 3 mm nonobstructing calculus at the lower pole. No hydronephrosis. US/US renal BI IMPRESSION: Bilateral nephrolithiasis as described. Electronically signed by: Harjeet Silva MD 02/17/2025 03:00 PM EDT
== END 2025-02-17 14:16 | disposition home or self-care (01) ==
LOC: HO.HMGCX 14:15
PROVIDERS: PCP Internal Medicine; Visit Provider Internal Medicine
DX: N20.0 Calculus of kidney (principal)
CPT/HCPCS: 76775

== ENCOUNTER → 2025-02-17 14:23 | Outpatient (BNV) | payer MEDICARE, OTHER, SELFPAY | PROVIDERS: PCP Internal Medicine; Visit Provider Radiology Diagnostic Radiology | DX: N20.0 Calculus of kidney (principal) | CPT/HCPCS: 76775 ==